=== PATIENT | female | born 1990 | race Caucasian/White ===

== ENCOUNTER 2021-05-15 21:10 | Inpatient (IN) | payer MEDICAID, OTHER ==
[~2021-05-15] VITALS: Ht 160 cm; Wt 75.2 kg
[~2021-05-15 21:10] MED LIST: CHLO25CA9 PO; DISU250T2 PO; FOLI1TAB32 PO; MAGN400T26 PO; PHOS250T3 PO; THIA100T10 PO
[2021-05-15] MEDS ORDERED: SODIUM CHLORIDE FLUSH 10ML SYR IVF ONE (22:00)
[2021-05-15] MEDS ORDERED: ONDANSETRON 2MG/ML, 2ML IVPush ONE ×2 (22:00→23:00)
[2021-05-15] MEDS ORDERED: SODIUM CHLORIDE 0.9% 1,000ML IVBOLUS ONE ×2 (22:00→23:00)
[2021-05-15 22:16] LABS: CHLORIDE 85 mmol/L (98-107); CREATININE 1.04 mg/dL (0.55-1.02)
[2021-05-15 22:25] LABS: ANION GAP 26 mmol/L (5-15)
[2021-05-15 22:26] LABS: ALBUMIN 2.3 g/dL (3.4-5.0); ALKALINE PHOSPHATASE 58 U/L (45-117); BILIRUBIN,TOTAL 2.7 mg/dL (0.2-1.0); TOTAL PROTEIN 7.1 g/dL (6.4-8.2)
[2021-05-15 22:26] LABS: MICROSCOPIC INDICATED
[2021-05-15 23:14] LABS: ALANINE AMINOTRANSFERASE 15 U/L (12-78); CALCIUM 7.6 mg/dL (8.5-10.1)
[2021-05-15] MEDS ORDERED: POTASSIUM CHLORIDE 20 MEQ in SODIUM CHLORIDE 0.9% 250 ML IV ONE (23:30)
[2021-05-15 23:38] LABS: MEAN CORPUSCULAR HEMOGLOBIN 31.6 pg (27.0-34.8); MEAN CORPUSCULAR HGB CONC 33.3 g/dL (32.4-35.8); MEAN PLATELET VOLUME 7.5 fL (7.4-10.4); PLATELET COUNT 260 x10^3/uL (130-400); RED BLOOD COUNT 4.26 x10^6/uL (3.82-5.3); RED CELL DISTRIBUTION WIDTH 15.5 % (9.6-15.2)
[2021-05-15 23:47] LABS: BAND#(MANUAL) 1.85 x10^3/uL; BANDS%(MANUAL) 15 % (0-7); BASOS#(MANUAL) 0.12 x10^3/uL (0-0.1); BASOS% (MANUAL) 1 % (0-1); EOS#(MANUAL) 0.12 x10^3/uL (0.0-0.4); EOS% (MANUAL) 1 % (1-7); LYMPH#(MANUAL) 1.48 x10^3/uL (1-3.4); LYMPHS% (MANUAL) 12 % (22-44); MONOS#(MANUAL) 0.86 x10^3/uL (0.3-2.7); MONOS% (MANUAL) 7 % (2-9); SEG#(MANUAL) 7.87 x10^3/uL (1.8-6.8); SEGS% (MANUAL) 64 % (42-75)
[2021-05-15 23:48] LABS: <PLATELET ESTIMATE> ADEQUATE; <PLT MORPHOLOGY> NORMAL PLT MORPH; <RBC MORPHOLOGY> NORMAL
[2021-05-15] MEDS ORDERED: ONDANSETRON 2MG/ML, 2ML ONE (23:53)
[2021-05-15] MEDS ORDERED: MORPHINE SULFATE 4 MG/ML, 1ML ONE (23:54)
[2021-05-16] MEDS ORDERED: LACTATED RINGERS 1,000 ML IVBOLUS ONE
[2021-05-16] MEDS: MORPHINE SULFATE 4 MG/ML, 1ML IVPush PRN ×2 (00:01→01:06)
--- NOTE | 2021-05-16 00:06 | NUR ---
pt c/o of lower abdominal pain since yesterday morning that continued to get worse. pt last drink was saturday night. pt lipase levels elevated. pt resting in bed with fiance at bedside. pt attached to card/sp02/bp monitors. hr elevated. bed in low position, rails engaged. call light on lap. pt tolerated meds well. pt given blankets. wctm.
--- NOTE | 2021-05-16 00:21 | NUR ---
PT OFF UNIT IN IMAGING.
[2021-05-16] MEDS ORDERED: OMNIPAQUE 350 MG/ML, 100ML BOTTLE ONE (00:41)
[2021-05-16] MEDS ORDERED: MORPHINE SULFATE 4 MG/ML, 1ML ONE (00:54)
[2021-05-16] MEDS ORDERED: ONDANSETRON 2MG/ML, 2ML ONE (00:54)
--- NOTE | 2021-05-16 01:08 | NUR ---
Patient is resting in bed. Bed in lowest, rails engaged, call light on lap. Vss with elevated hr. WCTM. medicated per emar. nadn breathing even and unlabored.
[2021-05-16] MEDS ORDERED: PIPERACILLIN/TAZO 3.375 GM in DEXTROSE 5% 50 ML IVPB ONE (02:00)
[2021-05-16] MEDS ORDERED: SODIUM CHLORIDE 0.9% 1,000 ML IV ONE (02:00)
[2021-05-16] MEDS ORDERED: MORPHINE SULFATE 4 MG/ML, 1ML IVPush PRN (02:00)
[2021-05-16] MEDS ORDERED: ONDANSETRON 2MG/ML, 2ML IVPush PRN (02:00)
[2021-05-16] MEDS ORDERED: HYDROmorphone 2 MG/ML, 1ML IVPush ONE (02:30)
[2021-05-16] MEDS ORDERED: HYDROmorphone 1 MG/ML, 1ML INJ ONE (02:30)
--- NOTE | 2021-05-16 02:44 | NUR ---
6 rights, and 3 checks done on dilauded med. bottle would not scan.
--- NOTE | 2021-05-16 02:46 | NUR ---
pt ambulated to bathroom with steady gait.
[2021-05-16] MEDS ORDERED: GUAIFENESIN/DM 200-20MG, 10ML UDC PO PRN (03:00)
[2021-05-16] MEDS ORDERED: CHLORDIAZEPOXIDE 25 MG CAPSULE PO PRN ×2 (03:00)
[2021-05-16] MEDS ORDERED: CHLORDIAZEPOXIDE 10 MG CAPSULE PO PRN (03:00)
[2021-05-16] MEDS ORDERED: SODIUM CHLORIDE 0.9% 1,000 ML IV SCH (03:00)
[2021-05-16] MEDS ORDERED: BACLOFEN 10 MG TABLET PO PRN (03:00)
[2021-05-16] MEDS ORDERED: ENALAPRILAT 1.25 MG/ML, 2ML IVPush PRN (03:00)
[2021-05-16] MEDS ORDERED: FOLIC ACID 5 MG/ML IM ONE (03:00)
--- NOTE | 2021-05-16 03:06 | NUR ---
SPOKE TO DR FAJARDO. WAS TOLD TO USE A NS BOLUS INSTEAD OF LACTATED RINGERS DUE TO INCOMPATILBILTY WITH ZOSYN.
--- NOTE | 2021-05-16 03:13 | NUR ---
Patient is resting comfortably in bed. Bed in lowest, rails engaged, call light on lap. Vital Signs within normal limits. WCTM. attachd to all monitors. pamela
--- NOTE | 2021-05-16 03:15 | NUR ---
PT STATES SHE DOES NOT TAKE MEDICATIONS
--- NOTE | 2021-05-16 03:19 | NUR ---
GAVE REPORT TO DORITA DAVIS
[2021-05-16 03:38] VITALS: BP 122/82
[2021-05-16] MEDS: OXYcodone IR 5MG TABLET PO PRN ×3 (04:04→19:47)
[2021-05-16 05:24] LABS: ANION GAP 23 mmol/L (5-15); CHLORIDE 95 mmol/L (98-107); CREATININE 0.61 mg/dL (0.55-1.02)
[2021-05-16 05:28] LABS: ALBUMIN 1.9 g/dL (3.4-5.0)
[2021-05-16 05:41] LABS: MEAN CORPUSCULAR HEMOGLOBIN 32.2 pg (27.0-34.8); MEAN CORPUSCULAR HGB CONC 33.8 g/dL (32.4-35.8); PLATELET COUNT 243 x10^3/uL (130-400); RED BLOOD COUNT 3.45 x10^6/uL (3.82-5.3); RED CELL DISTRIBUTION WIDTH 15.3 % (9.6-15.2)
[2021-05-16 05:56] LABS: BAND#(MANUAL) 1.43 x10^3/uL; BANDS%(MANUAL) 14 % (0-7); BASOS% (MANUAL) 1 % (0-1); EOS% (MANUAL) 2 % (1-7); LYMPH#(MANUAL) 1.33 x10^3/uL (1-3.4); LYMPHS% (MANUAL) 13 % (22-44); MONOS#(MANUAL) 0.71 x10^3/uL (0.3-2.7); MONOS% (MANUAL) 7 % (2-9); SEG#(MANUAL) 6.43 x10^3/uL (1.8-6.8); SEGS% (MANUAL) 63 % (42-75)
[2021-05-16 05:58] LABS: <RBC MORPHOLOGY> NORMAL
[2021-05-16 05:59] LABS: <PLATELET ESTIMATE> ADEQUATE; <PLT MORPHOLOGY> NORMAL PLT MORPH
[2021-05-16] MEDS ORDERED: SODIUM BICARBONATE 1 MEQ/ML, 50ML VIAL IVPush ONE (06:00)
[2021-05-16 06:15] LABS: CALCIUM 5.7 mg/dL (8.5-10.1)
[2021-05-16 07:14] VITALS: BP 130/89
[2021-05-16 07:37] LABS: O2 FLOW ROOM AIR L/min
[2021-05-16] MEDS: morphine SULFATE 10 MG/ML, 1ML IVPush PRN ×5 (07:44→23:00)
[2021-05-16] MEDS: MULTIVITAMINS/MINERALS TABLET PO SCH (08:03)
[2021-05-16] MEDS: SODIUM BICARBONATE 8.4% 100 MEQ in DEXTROSE 5% 1,000 ML IV SCH ×2 (08:21→15:33)
[2021-05-16] MEDS: FAMOTIDINE 20 MG/2 ML IVPush SCH ×2 (08:21→20:23)
[2021-05-16] MEDS: ENOXAPARIN 40 MG/0.4 ML SQ SCH (08:21)
[2021-05-16 09:03] LABS: ANION GAP 13 mmol/L (5-15); CHLORIDE 109 mmol/L (98-107); CREATININE 0.53 mg/dL (0.55-1.02)
[2021-05-16 09:09] LABS: CALCIUM 5.7 mg/dL (8.5-10.1)
[2021-05-16] MEDS: CHLORDIAZEPOXIDE 25 MG CAPSULE PO PRN (09:13)
[2021-05-16 09:24] VITALS: BP 120/88
[2021-05-16] MEDS: ACETAMINOPHEN 325 MG TABLET PO PRN ×3 (10:57→22:59)
[2021-05-16 13:08] VITALS: BP 108/78
[2021-05-16 18:30] LABS: ANION GAP 15 mmol/L (5-15); CHLORIDE 101 mmol/L (98-107)
[2021-05-16 18:43] LABS: CALCIUM < 5.0 mg/dL (8.5-10.1)
[2021-05-16] MEDS ORDERED: CALCIUM GLUCONATE 4.6 MEQ in SODIUM CHLORIDE 0.9% 50 ML IV ONE (19:00)
[2021-05-16] MEDS ORDERED: CALCIUM GLUCONATE 4.6 MEQ/10 ML IVPush ONE (19:00)
[2021-05-16] MEDS ORDERED: POTASSIUM CHLORIDE 40 MEQ in SODIUM CHLORIDE 0.9% 500 ML IV ONE (19:00)
[2021-05-16] MEDS: ONDANSETRON 2MG/ML, 2ML IVPush PRN (19:47)
[2021-05-16 20:45] VITALS: BP 96/65
[2021-05-16] MEDS: ZOLPIDEM 5MG TABLET PO PRN (21:00)
[2021-05-17] MEDS: SODIUM BICARBONATE 8.4% 100 MEQ in DEXTROSE 5% 1,000 ML IV SCH (00:22)
[2021-05-17 00:56] VITALS: BP 95/60
[2021-05-17] MEDS: morphine SULFATE 10 MG/ML, 1ML IVPush PRN ×4 (03:03→23:36)
[2021-05-17] MEDS: ACETAMINOPHEN 325 MG TABLET PO PRN ×2 (03:03→20:14)
[2021-05-17 06:23] LABS: ALANINE AMINOTRANSFERASE 14 U/L (12-78); ALBUMIN 2.2 g/dL (3.4-5.0); ANION GAP 15 mmol/L (5-15); CHLORIDE 99 mmol/L (98-107); CREATININE 1.91 mg/dL (0.55-1.02)
[2021-05-17 06:25] LABS: ALKALINE PHOSPHATASE 36 U/L (45-117); BILIRUBIN,TOTAL 1.1 mg/dL (0.2-1.0); TOTAL PROTEIN 5.8 g/dL (6.4-8.2)
[2021-05-17] MEDS: OXYcodone IR 5MG TABLET PO PRN ×2 (06:27→14:08)
[2021-05-17] MEDS: ONDANSETRON 2MG/ML, 2ML IVPush PRN ×2 (06:27→20:13)
[2021-05-17 06:35] LABS: CALCIUM < 5.0 mg/dL (8.5-10.1)
[2021-05-17 06:35] LABS: MEAN CORPUSCULAR HGB CONC 33.6 g/dL (32.4-35.8); MEAN PLATELET VOLUME 6.9 fL (7.4-10.4); RED BLOOD COUNT 4.09 x10^6/uL (3.82-5.3); RED CELL DISTRIBUTION WIDTH 15.4 % (9.6-15.2)
[2021-05-17 06:37] VITALS: BP 95/61
[2021-05-17 06:37] LABS: PLATELET COUNT 226 x10^3/uL (130-400)
[2021-05-17 06:41] LABS: BAND#(MANUAL) 5.33 x10^3/uL; BANDS%(MANUAL) 41 % (0-7); BASOS#(MANUAL) 0.13 x10^3/uL (0-0.1); BASOS% (MANUAL) 1 % (0-1); EOS#(MANUAL) 0.13 x10^3/uL (0.0-0.4); EOS% (MANUAL) 1 % (1-7); LYMPH#(MANUAL) 0.39 x10^3/uL (1-3.4); LYMPHS% (MANUAL) 3 % (22-44); METAMYELOCYTES# (MANUAL) 0.52 x10^3/uL (0-0); METAMYELOCYTES% (MANUAL) 4 % (0-1); MONOS#(MANUAL) 0.39 x10^3/uL (0.3-2.7); MONOS% (MANUAL) 3 % (2-9); SEG#(MANUAL) 6.11 x10^3/uL (1.8-6.8); SEGS% (MANUAL) 47 % (42-75)
[2021-05-17 06:42] LABS: ANISOCYTOSIS 1+; PMNS WITH VACUOLES 1+
[2021-05-17 06:43] LABS: <PLATELET ESTIMATE> ADEQUATE; <PLT MORPHOLOGY> NORMAL PLT MORPH
[2021-05-17] MEDS: CHLORDIAZEPOXIDE 25 MG CAPSULE PO PRN (06:47)
[2021-05-17] MEDS ORDERED: POTASSIUM PHOSPHATE 44 MEQ in SODIUM CHLORIDE 0.9% 500 ML IV ONE (07:00)
[2021-05-17] MEDS ORDERED: MAGNESIUM SULFATE PMX 2GM/50ML 50 ML IV ONE (07:00)
[2021-05-17] MEDS ORDERED: CALCIUM GLUCONATE 9.2 MEQ in SODIUM CHLORIDE 0.9% 100 ML IV ONE ×3 (07:00→18:30)
[2021-05-17] MEDS ORDERED: MAGNESIUM SULFATE 1 GM in SODIUM CHLORIDE 0.9% 50 ML IV ONE (07:00)
[2021-05-17] MEDS ORDERED: CALCIUM GLUCONATE 0.46MEQ/1ML IVPush ONE (07:00)
[2021-05-17] MEDS: MULTIVITAMINS/MINERALS TABLET PO SCH (08:05)
[2021-05-17] MEDS: FAMOTIDINE 20 MG/2 ML IVPush SCH (08:21)
[2021-05-17] MEDS: ENOXAPARIN 40 MG/0.4 ML SQ SCH (09:01)
[2021-05-17 09:06] LABS: ALANINE AMINOTRANSFERASE 13 U/L (12-78); ALBUMIN 2.2 g/dL (3.4-5.0); ANION GAP 15 mmol/L (5-15); CHLORIDE 95 mmol/L (98-107); CREATININE 2.37 mg/dL (0.55-1.02)
[2021-05-17 09:08] LABS: ALKALINE PHOSPHATASE 33 U/L (45-117); BILIRUBIN,TOTAL 1.2 mg/dL (0.2-1.0)
[2021-05-17 09:14] LABS: CALCIUM < 5.0 mg/dL (8.5-10.1)
[2021-05-17 09:28] VITALS: BP 85/54
[2021-05-17] MEDS ORDERED: LACTATED RINGERS 1,000 ML IVBOLUS ONE (10:00)
[2021-05-17] MEDS ORDERED: ALBUMIN HUMAN 25% 100 ML IV ONE (11:00)
[2021-05-17 11:20] VITALS: BP 100/66
[2021-05-17 12:11] VITALS: BP 96/65
[2021-05-17] MEDS: CEFTRIAXONE 2 GM in DEXTROSE 5% 50 ML IVPB SCH (12:12)
[2021-05-17] MEDS ORDERED: CALCIUM GLUCONATE 4.6 MEQ/10 ML IVPush ONE ×2 (12:30→18:00)
[2021-05-17] MEDS: THIAMINE 100 MG in DEXTROSE 5% 50 ML IVPB SCH (14:08)
[2021-05-17] MEDS: POTASSIUM CHLORIDE 10 MEQ in LACTATED RINGERS 1,000 ML IV SCH (15:47)
[2021-05-17 17:03] LABS: MICROSCOPIC INDICATED
[2021-05-17 20:09] VITALS: BP 117/74
[2021-05-17] MEDS: ZOLPIDEM 5MG TABLET PO PRN (20:14)
[2021-05-17] MEDS ORDERED: FAMOTIDINE 20 MG TABLET PO SCH (21:00)
[2021-05-18 00:27] VITALS: BP 100/67
[2021-05-18] MEDS: POTASSIUM CHLORIDE 10 MEQ in LACTATED RINGERS 1,000 ML IV SCH (00:27)
[2021-05-18 05:50] LABS: CHLORIDE 91 mmol/L (98-107)
[2021-05-18] MEDS: morphine SULFATE 10 MG/ML, 1ML IVPush PRN ×3 (05:53→21:19)
[2021-05-18] MEDS: ACETAMINOPHEN 325 MG TABLET PO PRN ×4 (05:53→22:08)
[2021-05-18 05:58] LABS: ALKALINE PHOSPHATASE 52 U/L (45-117); ANION GAP 14 mmol/L (5-15); BILIRUBIN,TOTAL 1.3 mg/dL (0.2-1.0); CREATININE 1.06 mg/dL (0.55-1.02); TOTAL PROTEIN 5.6 g/dL (6.4-8.2)
[2021-05-18 06:03] LABS: ALANINE AMINOTRANSFERASE 13 U/L (12-78)
[2021-05-18 06:04] LABS: CALCIUM < 5.0 mg/dL (8.5-10.1)
[2021-05-18 07:30] VITALS: BP 104/62
[2021-05-18] MEDS: OXYcodone IR 5MG TABLET PO PRN ×3 (08:49→23:40)
[2021-05-18] MEDS: MULTIVITAMINS/MINERALS TABLET PO SCH (08:49)
[2021-05-18] MEDS: THIAMINE 100 MG in DEXTROSE 5% 50 ML IVPB SCH (08:49)
[2021-05-18] MEDS: ENOXAPARIN 30 MG/0.3 ML SQ SCH (08:52)
[2021-05-18] MEDS ORDERED: LORazepam 1MG TABLET PO PRN ×4 (09:30)
[2021-05-18] MEDS ORDERED: LORazepam 2 MG/ML, 1ML IV PRN ×6 (09:30)
[2021-05-18] MEDS ORDERED: LORazepam 0.5MG TABLET PO PRN (09:30)
[2021-05-18] MEDS: CEFTRIAXONE 2 GM in DEXTROSE 5% 50 ML IVPB SCH (10:10)
[2021-05-18] MEDS: NS + 20MEQ KCL 1,000 ML IV SCH ×2 (10:10→21:17)
[2021-05-18 13:00] VITALS: BP 111/75
[2021-05-18] MEDS: CHLORDIAZEPOXIDE 5 MG CAPSULE PO SCH ×2 (13:39→21:30)
[2021-05-18 15:49] LABS: ANION GAP 11 mmol/L (5-15); CHLORIDE 96 mmol/L (98-107); CREATININE 0.73 mg/dL (0.55-1.02)
[2021-05-18 15:58] LABS: CALCIUM < 5.0 mg/dL (8.5-10.1)
[2021-05-18] MEDS ORDERED: CALCIUM GLUCONATE 4.6 MEQ/10 ML IVPush ONE (16:30)
[2021-05-18] MEDS ORDERED: CALCIUM GLUCONATE 9.2 MEQ in SODIUM CHLORIDE 0.9% 100 ML IV ONE (16:30)
[2021-05-18 19:39] VITALS: BP 108/69
[2021-05-18] MEDS: ZOLPIDEM 5MG TABLET PO PRN (21:17)
[2021-05-18] MEDS: FAMOTIDINE 20 MG TABLET PO SCH (21:17)
[2021-05-19] VITALS (13 sets, daily range): BP systolic 108–139; BP diastolic 66–98
[2021-05-19] MEDS: CHLORDIAZEPOXIDE 5 MG CAPSULE PO SCH ×2 (02:30→09:00)
[2021-05-19] MEDS: ACETAMINOPHEN 325 MG TABLET PO PRN ×3 (02:46→22:05)
[2021-05-19] MEDS: morphine SULFATE 10 MG/ML, 1ML IVPush PRN ×2 (03:06→19:34)
[2021-05-19 05:11] LABS: MEAN CORPUSCULAR HEMOGLOBIN 32.7 pg (27.0-34.8); MEAN CORPUSCULAR HGB CONC 34.4 g/dL (32.4-35.8); MEAN PLATELET VOLUME 9.1 fL (7.4-10.4); PLATELET COUNT 143 x10^3/uL (130-400); RED BLOOD COUNT 2.77 x10^6/uL (3.82-5.3); RED CELL DISTRIBUTION WIDTH 15.3 % (9.6-15.2)
[2021-05-19 05:25] LABS: CHLORIDE 94 mmol/L (98-107)
[2021-05-19 05:57] LABS: ALKALINE PHOSPHATASE 62 U/L (45-117); ANION GAP 10 mmol/L (5-15); BILIRUBIN,TOTAL 0.8 mg/dL (0.2-1.0); TOTAL PROTEIN 6.1 g/dL (6.4-8.2)
[2021-05-19 06:14] LABS: ALANINE AMINOTRANSFERASE 14 U/L (12-78); CALCIUM < 5.0 mg/dL (8.5-10.1)
[2021-05-19 06:20] LABS: ANISOCYTOSIS 1+; BAND#(MANUAL) 0.44 x10^3/uL; BANDS%(MANUAL) 4 % (0-7); EOS#(MANUAL) 0.11 x10^3/uL (0.0-0.4); EOS% (MANUAL) 1 % (1-7); LYMPH#(MANUAL) 0.44 x10^3/uL (1-3.4); LYMPHS% (MANUAL) 4 % (22-44); METAMYELOCYTES# (MANUAL) 0.11 x10^3/uL (0-0); METAMYELOCYTES% (MANUAL) 1 % (0-1); MONOS#(MANUAL) 1.11 x10^3/uL (0.3-2.7); MONOS% (MANUAL) 10 % (2-9); MYELOCYTES# (MANUAL) 0.11 x10^3/uL (0-0); MYELOCYTES% (MANUAL) 1 % (0-0); SEG#(MANUAL) 8.77 x10^3/uL (1.8-6.8); SEGS% (MANUAL) 79 % (42-75)
[2021-05-19 06:21] LABS: <PLATELET ESTIMATE> ADEQUATE; <PLT MORPHOLOGY> NORMAL PLT MORPH; PMNS WITH VACUOLES 1+
[2021-05-19] MEDS: OXYcodone IR 5MG TABLET PO PRN ×4 (06:32→22:32)
[2021-05-19] MEDS ORDERED: CALCIUM GLUCONATE 4.6 MEQ/10 ML IVPush ONE (10:00)
[2021-05-19] MEDS ORDERED: CALCIUM GLUCONATE 4.6 MEQ/10 ML IVPush SCH ×2 (10:00→16:00)
[2021-05-19] MEDS ORDERED: CALCIUM GLUCONATE 9.2 MEQ in SODIUM CHLORIDE 0.9% 100 ML IV ONE (10:00)
[2021-05-19 10:16] LABS: FIO2 ROOM AIR %
[2021-05-19 10:27] LABS: ANION GAP 12 mmol/L (5-15); CHLORIDE 93 mmol/L (98-107)
[2021-05-19] MEDS ORDERED: POTASSIUM PHOSPHATE 44 MEQ in SODIUM CHLORIDE 0.9% 500 ML IV ONE (10:30)
[2021-05-19] MEDS ORDERED: SODIUM PHOSPHATE 30 MMOL in SODIUM CHLORIDE 0.9% 500 ML IV ONE (11:00)
[2021-05-19] MEDS: MULTIVITAMINS/MINERALS TABLET PO SCH (11:01)
[2021-05-19] MEDS: FAMOTIDINE 20 MG TABLET PO SCH ×2 (11:02→20:45)
[2021-05-19] MEDS: ENOXAPARIN 30 MG/0.3 ML SQ SCH (11:02)
[2021-05-19 11:08] LABS: CALCIUM < 5.0 mg/dL (8.5-10.1)
[2021-05-19] MEDS: ALBUMIN HUMAN 25% 100 ML IV SCH ×2 (12:08→20:18)
[2021-05-19] MEDS ORDERED: OMNIPAQUE 350 MG/ML, 100ML BOTTLE ONE (13:35)
[2021-05-19] MEDS ORDERED: POTASSIUM CHLORIDE 20 MEQ TAB.ER.PRT PO ONE (14:00)
[2021-05-19] MEDS: THIAMINE 100 MG in DEXTROSE 5% 50 ML IVPB SCH (14:22)
[2021-05-19] MEDS: CEFTRIAXONE 2 GM in DEXTROSE 5% 50 ML IVPB SCH (14:22)
[2021-05-19] MEDS ORDERED: CEFEPIME 2 GM in DEXTROSE 5% 100 ML IV SCH (16:00)
[2021-05-19] MEDS ORDERED: CALCIUM GLUCONATE 9.2 MEQ in SODIUM CHLORIDE 0.9% 100 ML IV SCH (16:00)
[2021-05-19] MEDS ORDERED: CALCIUM CHLORIDE 27.2 MEQ in SODIUM CHLORIDE 0.9% 100 ML IV PRN (16:30)
[2021-05-19] MEDS ORDERED: CALCIUM CHLORIDE 27.2 MEQ in SODIUM CHLORIDE 0.9% 100 ML IV ONE (16:30)
[2021-05-19] MEDS ORDERED: METRONIDAZOLE PMX 500MG/100ML 100 ML IV SCH (17:00)
[2021-05-19] MEDS: MEROPENEM 1 GM in SODIUM CHLORIDE 0.9% 100 ML IV SCH (17:19)
[2021-05-19] MEDS: KSCALE TO 4.5 PO SCH (20:00)
[2021-05-19] MEDS: POTASSIUM CHLORIDE 40 MEQ in LACTATED RINGERS 1,000 ML IV SCH (20:55)
[2021-05-19] MEDS: LORazepam 2 MG/ML, 1ML IVPush PRN (22:37)
[2021-05-20] MEDS ORDERED: POTASSIUM CHLORIDE PMX 100 ML IV ONE (01:00)
[2021-05-20] MEDS: MEROPENEM 1 GM in SODIUM CHLORIDE 0.9% 100 ML IV SCH ×3 (01:05→17:41)
[2021-05-20] MEDS ORDERED: POTASSIUM CHLORIDE 20 MEQ in SODIUM CHLORIDE 0.9% 250 ML IV ONE (01:30)
[2021-05-20] MEDS: morphine SULFATE 10 MG/ML, 1ML IVPush PRN ×6 (01:51→21:31)
[2021-05-20] MEDS: LORazepam 2 MG/ML, 1ML IVPush PRN ×7 (01:51→21:31)
[2021-05-20] MEDS: ALBUMIN HUMAN 25% 100 ML IV SCH ×3 (02:17→17:43)
[2021-05-20] MEDS: KSCALE TO 4.5 PO SCH ×2 (04:00)
[2021-05-20 04:09] LABS: MEAN CORPUSCULAR HEMOGLOBIN 32.3 pg (27.0-34.8); MEAN CORPUSCULAR HGB CONC 33.6 g/dL (32.4-35.8); MEAN PLATELET VOLUME 8.2 fL (7.4-10.4); PLATELET COUNT 123 x10^3/uL (130-400); RED BLOOD COUNT 2.58 x10^6/uL (3.82-5.3); RED CELL DISTRIBUTION WIDTH 15.5 % (9.6-15.2)
[2021-05-20 04:20] LABS: ALANINE AMINOTRANSFERASE 11 U/L (12-78); ALBUMIN 2.7 g/dL (3.4-5.0); ANION GAP 8 mmol/L (5-15); CALCIUM 7.8 mg/dL (8.5-10.1); CHLORIDE 102 mmol/L (98-107); CREATININE 0.31 mg/dL (0.55-1.02)
[2021-05-20 04:24] LABS: ALKALINE PHOSPHATASE 64 U/L (45-117); CREATINE KINASE, TOTAL 642 U/L (26-192); TOTAL PROTEIN 6.6 g/dL (6.4-8.2)
[2021-05-20] MEDS ORDERED: DEXTROSE 50%, 50ML SYRINGE ONE (04:40)
[2021-05-20] MEDS: POTASSIUM CHLORIDE 40 MEQ in LACTATED RINGERS 1,000 ML IV SCH (04:43)
[2021-05-20] MEDS ORDERED: DEXTROSE 50%, 50ML SYRINGE IVPush PRN (05:00)
[2021-05-20 05:54] LABS: BAND#(MANUAL) 2.55 x10^3/uL; BANDS%(MANUAL) 23 % (0-7); EOS#(MANUAL) 0.33 x10^3/uL (0.0-0.4); EOS% (MANUAL) 3 % (1-7); LYMPH#(MANUAL) 0.67 x10^3/uL (1-3.4); LYMPHS% (MANUAL) 6 % (22-44); METAMYELOCYTES# (MANUAL) 0.33 x10^3/uL (0-0); METAMYELOCYTES% (MANUAL) 3 % (0-1); MONOS#(MANUAL) 1.44 x10^3/uL (0.3-2.7); MONOS% (MANUAL) 13 % (2-9); MYELOCYTES# (MANUAL) 0.22 x10^3/uL (0-0); MYELOCYTES% (MANUAL) 2 % (0-0); SEG#(MANUAL) 5.55 x10^3/uL (1.8-6.8); SEGS% (MANUAL) 50 % (42-75)
[2021-05-20 05:55] LABS: ANISOCYTOSIS 1+; TOXIC GRAN 1+
[2021-05-20 05:56] LABS: <PLATELET ESTIMATE> DECREASED; <PLT MORPHOLOGY> NORMAL PLT MORPH
[2021-05-20] MEDS ORDERED: POTASSIUM CHLORIDE 40 MEQ in D5%-LACTATED RINGERS 1,000 ML IV SCH (06:30)
[2021-05-20] MEDS ORDERED: SODIUM PHOSPHATE 20 MMOL in SODIUM CHLORIDE 0.9% 500 ML IV ONE (07:00)
[2021-05-20] MEDS: POTASSIUM CHLORIDE 40 MEQ in D5%-LACTATED RINGERS 1,000 ML IV SCH (08:30)
[2021-05-20] MEDS: MULTIVITAMINS/MINERALS TABLET PO SCH (08:53)
[2021-05-20] MEDS: CHLORDIAZEPOXIDE 25 MG CAPSULE PO SCH ×4 (08:53→20:38)
[2021-05-20] MEDS: CALCIUM CARBONATE 500 MG TAB.CHEW PO SCH ×4 (08:53→20:05)
[2021-05-20] MEDS: OXYcodone IR 5MG TABLET PO PRN (08:54)
[2021-05-20] MEDS: FAMOTIDINE 20 MG TABLET PO SCH ×2 (08:54→20:05)
[2021-05-20] MEDS: THIAMINE 200 MG in DEXTROSE 5% 50 ML IVPB SCH (10:13)
[2021-05-20] MEDS: ENOXAPARIN 40 MG/0.4 ML SQ SCH (10:14)
[2021-05-20] MEDS: DOCUSATE 100 MG CAPSULE PO PRN (16:25)
[2021-05-20] MEDS: ACETAMINOPHEN 325 MG TABLET PO PRN (19:51)
[2021-05-21] MEDS: morphine SULFATE 10 MG/ML, 1ML IVPush PRN ×2 (00:21→04:05)
[2021-05-21] MEDS: LORazepam 2 MG/ML, 1ML IVPush PRN ×2 (00:22→04:05)
[2021-05-21] MEDS: MEROPENEM 1 GM in SODIUM CHLORIDE 0.9% 100 ML IV SCH ×3 (00:55→19:45)
[2021-05-21] MEDS: ALBUMIN HUMAN 25% 100 ML IV SCH ×3 (02:03→22:07)
[2021-05-21] MEDS: OXYcodone IR 5MG TABLET PO PRN ×4 (02:19→20:28)
[2021-05-21] MEDS: POTASSIUM CHLORIDE 40 MEQ in D5%-LACTATED RINGERS 1,000 ML IV SCH (03:10)
[2021-05-21 04:13] LABS: MEAN CORPUSCULAR HEMOGLOBIN 32.5 pg (27.0-34.8); MEAN CORPUSCULAR HGB CONC 34.3 g/dL (32.4-35.8); MEAN PLATELET VOLUME 8.4 fL (7.4-10.4); PLATELET COUNT 135 x10^3/uL (130-400); RED BLOOD COUNT 2.32 x10^6/uL (3.82-5.3); RED CELL DISTRIBUTION WIDTH 15.7 % (9.6-15.2)
[2021-05-21 04:24] LABS: ALANINE AMINOTRANSFERASE 13 U/L (12-78); ALBUMIN 3.4 g/dL (3.4-5.0); ANION GAP 6 mmol/L (5-15); CHLORIDE 99 mmol/L (98-107); CREATININE 0.28 mg/dL (0.55-1.02)
[2021-05-21 04:27] LABS: ALKALINE PHOSPHATASE 141 U/L (45-117); BILIRUBIN,TOTAL 1.2 mg/dL (0.2-1.0); CREATINE KINASE, TOTAL 141 U/L (26-192); TOTAL PROTEIN 6.6 g/dL (6.4-8.2)
[2021-05-21 05:40] LABS: ANISOCYTOSIS 1+; BANDS%(MANUAL) 18 % (0-7); EOS#(MANUAL) 0.18 x10^3/uL (0.0-0.4); EOS% (MANUAL) 1 % (1-7); LYMPH#(MANUAL) 0.53 x10^3/uL (1-3.4); LYMPHS% (MANUAL) 3 % (22-44); METAMYELOCYTES# (MANUAL) 0.36 x10^3/uL (0-0); METAMYELOCYTES% (MANUAL) 2 % (0-1); MONOS#(MANUAL) 0.89 x10^3/uL (0.3-2.7); MONOS% (MANUAL) 5 % (2-9); MYELOCYTES# (MANUAL) 0.53 x10^3/uL (0-0); MYELOCYTES% (MANUAL) 3 % (0-0); SEGS% (MANUAL) 68 % (42-75)
[2021-05-21 05:41] LABS: <PLATELET ESTIMATE> ADEQUATE; <PLT MORPHOLOGY> NORMAL PLT MORPH; TOXIC GRAN 1+
[2021-05-21] MEDS ORDERED: SODIUM PHOSPHATE 20 MMOL in SODIUM CHLORIDE 0.9% 500 ML IV ONE (06:30)
[2021-05-21] MEDS ORDERED: CALCIUM CHLORIDE 13.6 MEQ in SODIUM CHLORIDE 0.9% 100 ML IV ONE (06:30)
[2021-05-21] MEDS: CHLORDIAZEPOXIDE 25 MG CAPSULE PO SCH ×4 (06:30→20:27)
[2021-05-21] MEDS ORDERED: MAGNESIUM SULFATE PMX 2GM/50ML 50 ML IV ONE (06:30)
[2021-05-21] MEDS: CALCIUM CARBONATE 500 MG TAB.CHEW PO SCH ×4 (06:30→20:28)
[2021-05-21] MEDS ORDERED: VANCOMYCIN PER PHARMACY MC PRN (06:30)
[2021-05-21] MEDS ORDERED: VANCOMYCIN 2,000 MG in SODIUM CHLORIDE 0.9% 500 ML IV ONE (07:30)
[2021-05-21] MEDS: FAMOTIDINE 20 MG TABLET PO SCH ×2 (08:39→20:28)
[2021-05-21] MEDS: ENOXAPARIN 40 MG/0.4 ML SQ SCH (08:39)
[2021-05-21] MEDS: MULTIVITAMINS/MINERALS TABLET PO SCH (08:39)
[2021-05-21] MEDS: THIAMINE 200 MG in DEXTROSE 5% 50 ML IVPB SCH (11:47)
[2021-05-21] MEDS: VANCOMYCIN 1,500 MG in SODIUM CHLORIDE 0.9% 250 ML IV SCH (20:15)
[2021-05-21] MEDS ORDERED: PHARMACOKINETIC MONITORING MC PRN (20:30)
[2021-05-22] MEDS: OXYcodone IR 5MG TABLET PO PRN ×5 (00:30→19:52)
[2021-05-22] MEDS: POTASSIUM CHLORIDE 40 MEQ in D5%-LACTATED RINGERS 1,000 ML IV SCH ×2 (00:58→22:45)
[2021-05-22] MEDS: MEROPENEM 1 GM in SODIUM CHLORIDE 0.9% 100 ML IV SCH ×3 (04:02→20:21)
[2021-05-22 04:24] LABS: MEAN CORPUSCULAR HEMOGLOBIN 31.9 pg (27.0-34.8); MEAN CORPUSCULAR HGB CONC 33.2 g/dL (32.4-35.8); MEAN PLATELET VOLUME 8.8 fL (7.4-10.4); PLATELET COUNT 175 x10^3/uL (130-400); RED BLOOD COUNT 2.21 x10^6/uL (3.82-5.3); RED CELL DISTRIBUTION WIDTH 15.3 % (9.6-15.2)
[2021-05-22 04:26] LABS: ALANINE AMINOTRANSFERASE 13 U/L (12-78); ALBUMIN 3.4 g/dL (3.4-5.0); ALKALINE PHOSPHATASE 113 U/L (45-117); ANION GAP 5 mmol/L (5-15); BILIRUBIN,TOTAL 0.9 mg/dL (0.2-1.0); CALCIUM 8.5 mg/dL (8.5-10.1); CHLORIDE 96 mmol/L (98-107); TOTAL PROTEIN 6.3 g/dL (6.4-8.2)
[2021-05-22] MEDS: LORazepam 2 MG/ML, 1ML IVPush PRN (05:17)
[2021-05-22] MEDS: CALCIUM CARBONATE 500 MG TAB.CHEW PO SCH ×4 (05:26→21:06)
[2021-05-22] MEDS: CHLORDIAZEPOXIDE 25 MG CAPSULE PO SCH ×4 (05:26→21:06)
[2021-05-22] MEDS: ALBUMIN HUMAN 25% 100 ML IV SCH ×3 (05:26→21:36)
[2021-05-22 05:51] LABS: BAND#(MANUAL) 3.05 x10^3/uL; BANDS%(MANUAL) 15 % (0-7); EOS% (MANUAL) 1 % (1-7); LYMPH#(MANUAL) 1.02 x10^3/uL (1-3.4); LYMPHS% (MANUAL) 5 % (22-44); METAMYELOCYTES# (MANUAL) 0.61 x10^3/uL (0-0); METAMYELOCYTES% (MANUAL) 3 % (0-1); MONOS#(MANUAL) 1.42 x10^3/uL (0.3-2.7); MONOS% (MANUAL) 7 % (2-9); MYELOCYTES# (MANUAL) 0.61 x10^3/uL (0-0); MYELOCYTES% (MANUAL) 3 % (0-0); SEGS% (MANUAL) 66 % (42-75)
[2021-05-22 05:52] LABS: ANISOCYTOSIS 1+; POLYCHROMASIA 1+; TOXIC GRAN 1+
[2021-05-22 05:53] LABS: <PLATELET ESTIMATE> ADEQUATE; <PLT MORPHOLOGY> NORMAL PLT MORPH
[2021-05-22] MEDS ORDERED: SODIUM CHLORIDE 0.9% 250 ML IV SCH (07:00)
[2021-05-22] MEDS ORDERED: SODIUM PHOSPHATE 20 MMOL in SODIUM CHLORIDE 0.9% 500 ML IV ONE (07:00)
[2021-05-22] MEDS: MULTIVITAMINS/MINERALS TABLET PO SCH (09:12)
[2021-05-22] MEDS: FAMOTIDINE 20 MG TABLET PO SCH ×2 (09:12→21:06)
[2021-05-22] MEDS: POTASSIUM CHLORIDE 20 MEQ PACKET PO SCH ×2 (09:12→16:10)
[2021-05-22] MEDS: THIAMINE 200 MG in DEXTROSE 5% 50 ML IVPB SCH (09:13)
[2021-05-22] MEDS: VANCOMYCIN 1,500 MG in SODIUM CHLORIDE 0.9% 250 ML IV SCH (10:41)
[2021-05-22] MEDS: CALCITRIOL 1 MCG/ML IVPush SCH (10:58)
--- NOTE | 2021-05-22 12:01 | NUR ---
TF per RD recommendations: Promote to start at 10mL/hr and advance Q12-24 hours as tolerated with end goal rate of 65 mL/hr. Addendum: 05/22/21 at [address] Amended: Links added.
[2021-05-22 12:56] VITALS: BP 169/93
--- NOTE | 2021-05-22 13:00 | NUR ---
TF Per JOHN PAUL recs (updated):recommendations: Vital AF 1.2 to start at 10mL/hr and advance Q12-24 hours as tolerated with end goal rate of 55 mL/hr Addendum: 05/22/21 at [address] Amended: Links added.
[2021-05-22] MEDS: ENOXAPARIN 40 MG/0.4 ML SQ SCH (13:05)
[2021-05-22 13:13] VITALS: BP 134/80
[2021-05-22 14:15] VITALS: BP 137/88
[2021-05-22 15:01] VITALS: BP 149/84
[2021-05-22] MEDS ORDERED: VANCOMYCIN 1,600 MG in SODIUM CHLORIDE 0.9% 250 ML IV SCH (20:30)
[2021-05-23] MEDS: OXYcodone IR 5MG TABLET PO PRN ×5 (00:20→23:38)
[2021-05-23] MEDS: MEROPENEM 1 GM in SODIUM CHLORIDE 0.9% 100 ML IV SCH ×3 (04:10→20:15)
[2021-05-23 04:25] LABS: MEAN CORPUSCULAR HEMOGLOBIN 31.8 pg (27.0-34.8); MEAN CORPUSCULAR HGB CONC 33.8 g/dL (32.4-35.8); MEAN PLATELET VOLUME 8.4 fL (7.4-10.4); PLATELET COUNT 242 x10^3/uL (130-400); RED BLOOD COUNT 2.63 x10^6/uL (3.82-5.3); RED CELL DISTRIBUTION WIDTH 15.3 % (9.6-15.2)
[2021-05-23 04:33] LABS: ALANINE AMINOTRANSFERASE 15 U/L (12-78); ALBUMIN 3.4 g/dL (3.4-5.0); ANION GAP 5 mmol/L (5-15); CALCIUM 8.6 mg/dL (8.5-10.1); CHLORIDE 96 mmol/L (98-107); CREATININE 0.28 mg/dL (0.55-1.02)
[2021-05-23 04:36] LABS: ALKALINE PHOSPHATASE 100 U/L (45-117); TOTAL PROTEIN 6.6 g/dL (6.4-8.2)
[2021-05-23 04:57] LABS: ANISOCYTOSIS 1+; BAND#(MANUAL) 5.04 x10^3/uL; BANDS%(MANUAL) 22 % (0-7); LYMPH#(MANUAL) 0.46 x10^3/uL (1-3.4); LYMPHS% (MANUAL) 2 % (22-44); METAMYELOCYTES# (MANUAL) 0.69 x10^3/uL (0-0); METAMYELOCYTES% (MANUAL) 3 % (0-1); MONOS#(MANUAL) 2.06 x10^3/uL (0.3-2.7); MONOS% (MANUAL) 9 % (2-9); MYELOCYTES# (MANUAL) 0.23 x10^3/uL (0-0); MYELOCYTES% (MANUAL) 1 % (0-0); PMNS WITH VACUOLES 1+; POLYCHROMASIA 1+; SEG#(MANUAL) 14.43 x10^3/uL (1.8-6.8); SEGS% (MANUAL) 63 % (42-75); TOXIC GRAN 1+
[2021-05-23 04:58] LABS: <PLATELET ESTIMATE> ADEQUATE; <PLT MORPHOLOGY> NORMAL PLT MORPH; TARGET CELLS 1+
[2021-05-23] MEDS: CALCIUM CARBONATE 500 MG TAB.CHEW PO SCH ×4 (05:40→20:15)
[2021-05-23] MEDS: ALBUMIN HUMAN 25% 100 ML IV SCH (05:40)
[2021-05-23] MEDS: CHLORDIAZEPOXIDE 25 MG CAPSULE PO SCH ×4 (05:40→20:15)
[2021-05-23] MEDS ORDERED: VANCOMYCIN 1,600 MG in SODIUM CHLORIDE 0.9% 250 ML IV SCH (08:30)
[2021-05-23] MEDS: MULTIVITAMINS/MINERALS TABLET PO SCH (09:03)
[2021-05-23] MEDS: FAMOTIDINE 20 MG TABLET PO SCH ×2 (09:03→20:15)
[2021-05-23] MEDS: THIAMINE 200 MG in DEXTROSE 5% 50 ML IVPB SCH (09:27)
[2021-05-23] MEDS: ENOXAPARIN 40 MG/0.4 ML SQ SCH (12:45)
[2021-05-23] MEDS: ACETAMINOPHEN 325 MG TABLET PO PRN ×2 (14:21→18:38)
[2021-05-23] MEDS: VANCOMYCIN 1,600 MG in SODIUM CHLORIDE 0.9% 250 ML IV SCH (17:15)
[2021-05-23] MEDS: POTASSIUM CHLORIDE 40 MEQ in D5%-LACTATED RINGERS 1,000 ML IV SCH (18:34)
[2021-05-24] MEDS: VANCOMYCIN 1,600 MG in SODIUM CHLORIDE 0.9% 250 ML IV SCH ×3 (01:50→16:34)
[2021-05-24] MEDS: morphine SULFATE 10 MG/ML, 1ML IVPush PRN (01:55)
[2021-05-24] MEDS: MEROPENEM 1 GM in SODIUM CHLORIDE 0.9% 100 ML IV SCH ×3 (04:07→20:28)
[2021-05-24] MEDS: OXYcodone IR 5MG TABLET PO PRN ×4 (04:11→20:29)
[2021-05-24 04:22] LABS: MEAN CORPUSCULAR HEMOGLOBIN 31.8 pg (27.0-34.8); MEAN CORPUSCULAR HGB CONC 33.1 g/dL (32.4-35.8); MEAN PLATELET VOLUME 8.2 fL (7.4-10.4); PLATELET COUNT 327 x10^3/uL (130-400); RED BLOOD COUNT 2.53 x10^6/uL (3.82-5.3); RED CELL DISTRIBUTION WIDTH 15.3 % (9.6-15.2)
[2021-05-24 04:30] LABS: ANION GAP 4 mmol/L (5-15); CALCIUM 8.6 mg/dL (8.5-10.1); CHLORIDE 96 mmol/L (98-107)
[2021-05-24 04:34] LABS: ALANINE AMINOTRANSFERASE 24 U/L (12-78); ALKALINE PHOSPHATASE 98 U/L (45-117); BILIRUBIN,TOTAL 0.8 mg/dL (0.2-1.0); CREATININE 0.33 mg/dL (0.55-1.02); TOTAL PROTEIN 6.4 g/dL (6.4-8.2)
[2021-05-24 05:46] LABS: BAND#(MANUAL) 0.25 x10^3/uL; BANDS%(MANUAL) 1 % (0-7); EOS% (MANUAL) 2 % (1-7); LYMPH#(MANUAL) 0.25 x10^3/uL (1-3.4); LYMPHS% (MANUAL) 1 % (22-44); METAMYELOCYTES# (MANUAL) 0.25 x10^3/uL (0-0); METAMYELOCYTES% (MANUAL) 1 % (0-1); MONOS#(MANUAL) 0.75 x10^3/uL (0.3-2.7); MONOS% (MANUAL) 3 % (2-9); SEG#(MANUAL) 22.91 x10^3/uL (1.8-6.8); SEGS% (MANUAL) 92 % (42-75)
[2021-05-24 05:47] LABS: <PLATELET ESTIMATE> ADEQUATE; <PLT MORPHOLOGY> NORMAL PLT MORPH; ANISOCYTOSIS 1+; POLYCHROMASIA 1+
[2021-05-24 05:48] LABS: TOXIC GRAN 1+
[2021-05-24] MEDS: CALCIUM CARBONATE 500 MG TAB.CHEW PO SCH ×4 (06:00→20:28)
[2021-05-24] MEDS: CHLORDIAZEPOXIDE 25 MG CAPSULE PO SCH ×4 (06:00→20:28)
[2021-05-24] MEDS: CALCITRIOL 1 MCG/ML IVPush SCH (08:29)
[2021-05-24] MEDS: FAMOTIDINE 20 MG TABLET PO SCH ×2 (08:29→20:28)
[2021-05-24] MEDS: MULTIVITAMINS/MINERALS TABLET PO SCH (08:29)
[2021-05-24] MEDS: THIAMINE 200 MG in DEXTROSE 5% 50 ML IVPB SCH (08:29)
[2021-05-24] MEDS: ENOXAPARIN 40 MG/0.4 ML SQ SCH (11:58)
[2021-05-24] MEDS: ONDANSETRON 2MG/ML, 2ML IVPush PRN (14:55)
[2021-05-24] MEDS: POTASSIUM CHLORIDE 40 MEQ in D5%-LACTATED RINGERS 1,000 ML IV SCH (15:57)
[2021-05-24] MEDS: ACETAMINOPHEN 325 MG TABLET PO PRN (20:28)
[2021-05-25] MEDS: VANCOMYCIN 1,600 MG in SODIUM CHLORIDE 0.9% 250 ML IV SCH ×3 (01:13→19:54)
[2021-05-25] MEDS: OXYcodone IR 5MG TABLET PO PRN ×4 (02:55→17:52)
[2021-05-25 04:22] LABS: MEAN CORPUSCULAR HEMOGLOBIN 31.8 pg (27.0-34.8); MEAN CORPUSCULAR HGB CONC 33.4 g/dL (32.4-35.8); MEAN PLATELET VOLUME 8.1 fL (7.4-10.4); PLATELET COUNT 379 x10^3/uL (130-400); RED BLOOD COUNT 2.61 x10^6/uL (3.82-5.3); RED CELL DISTRIBUTION WIDTH 14.9 % (9.6-15.2)
[2021-05-25] MEDS: MEROPENEM 1 GM in SODIUM CHLORIDE 0.9% 100 ML IV SCH ×3 (04:24→22:33)
[2021-05-25] MEDS: morphine SULFATE 10 MG/ML, 1ML IVPush PRN ×2 (04:30→20:27)
[2021-05-25 04:33] LABS: ANION GAP 6 mmol/L (5-15); CHLORIDE 95 mmol/L (98-107); CREATININE 0.34 mg/dL (0.55-1.02)
[2021-05-25 05:43] LABS: BASOS#(MANUAL) 0.22 x10^3/uL (0-0.1); BASOS% (MANUAL) 1 % (0-1); EOS#(MANUAL) 0.87 x10^3/uL (0.0-0.4); EOS% (MANUAL) 4 % (1-7); LYMPHS% (MANUAL) 6 % (22-44); METAMYELOCYTES# (MANUAL) 0.43 x10^3/uL (0-0); METAMYELOCYTES% (MANUAL) 2 % (0-1); MONOS#(MANUAL) 0.87 x10^3/uL (0.3-2.7); MONOS% (MANUAL) 4 % (2-9); SEG#(MANUAL) 18.01 x10^3/uL (1.8-6.8); SEGS% (MANUAL) 83 % (42-75)
[2021-05-25 05:44] LABS: <PLATELET ESTIMATE> ADEQUATE; <PLT MORPHOLOGY> NORMAL PLT MORPH; ANISOCYTOSIS 1+; POLYCHROMASIA 1+
[2021-05-25] MEDS: CALCIUM CARBONATE 500 MG TAB.CHEW PO SCH ×4 (06:12→19:54)
[2021-05-25] MEDS: CHLORDIAZEPOXIDE 25 MG CAPSULE PO SCH (06:12)
[2021-05-25] MEDS: MULTIVITAMINS/MINERALS TABLET PO SCH (08:35)
[2021-05-25] MEDS: FAMOTIDINE 20 MG TABLET PO SCH ×2 (08:35→19:54)
[2021-05-25] MEDS: THIAMINE 200 MG in DEXTROSE 5% 50 ML IVPB SCH (08:49)
[2021-05-25] MEDS: ENOXAPARIN 40 MG/0.4 ML SQ SCH (12:30)
[2021-05-25 14:50] VITALS: BP 112/74
[2021-05-25] MEDS: POTASSIUM CHLORIDE 40 MEQ in D5%-LACTATED RINGERS 1,000 ML IV SCH (15:34)
[2021-05-25 18:48] VITALS: BP 106/70
[2021-05-26] MEDS: OXYcodone IR 5MG TABLET PO PRN ×6 (00:48→22:51)
[2021-05-26 00:49] VITALS: BP 110/77
[2021-05-26] MEDS: morphine SULFATE 10 MG/ML, 1ML IVPush PRN ×3 (01:24→22:08)
[2021-05-26] MEDS: VANCOMYCIN 1,600 MG in SODIUM CHLORIDE 0.9% 250 ML IV SCH ×3 (04:12→20:00)
[2021-05-26] MEDS: CALCIUM CARBONATE 500 MG TAB.CHEW PO SCH ×4 (05:26→20:00)
[2021-05-26 05:52] LABS: MEAN CORPUSCULAR HEMOGLOBIN 31.4 pg (27.0-34.8); MEAN CORPUSCULAR HGB CONC 33.3 g/dL (32.4-35.8); MEAN PLATELET VOLUME 8.1 fL (7.4-10.4); PLATELET COUNT 419 x10^3/uL (130-400); RED BLOOD COUNT 2.35 x10^6/uL (3.82-5.3); RED CELL DISTRIBUTION WIDTH 14.4 % (9.6-15.2)
[2021-05-26 05:57] LABS: ANION GAP 6 mmol/L (5-15); CALCIUM 8.9 mg/dL (8.5-10.1); CHLORIDE 95 mmol/L (98-107)
[2021-05-26 05:59] LABS: CREATININE 0.42 mg/dL (0.55-1.02)
[2021-05-26] MEDS: MEROPENEM 1 GM in SODIUM CHLORIDE 0.9% 100 ML IV SCH ×3 (06:22→22:35)
[2021-05-26 06:41] LABS: ANISOCYTOSIS 1+; BAND#(MANUAL) 0.36 x10^3/uL; BANDS%(MANUAL) 2 % (0-7); EOS#(MANUAL) 0.18 x10^3/uL (0.0-0.4); EOS% (MANUAL) 1 % (1-7); LYMPH#(MANUAL) 1.26 x10^3/uL (1-3.4); LYMPHS% (MANUAL) 7 % (22-44); METAMYELOCYTES# (MANUAL) 0.54 x10^3/uL (0-0); METAMYELOCYTES% (MANUAL) 3 % (0-1); MONOS#(MANUAL) 1.62 x10^3/uL (0.3-2.7); MONOS% (MANUAL) 9 % (2-9); POLYCHROMASIA 1+; SEG#(MANUAL) 14.04 x10^3/uL (1.8-6.8); SEGS% (MANUAL) 78 % (42-75)
[2021-05-26 06:42] LABS: <PLATELET ESTIMATE> INCREASED; <PLT MORPHOLOGY> NORMAL PLT MORPH
[2021-05-26 07:40] VITALS: BP 115/70
[2021-05-26] MEDS: FAMOTIDINE 20 MG TABLET PO SCH (08:21)
[2021-05-26] MEDS: MULTIVITAMINS/MINERALS TABLET PO SCH (08:21)
[2021-05-26] MEDS: THIAMINE 200 MG in DEXTROSE 5% 50 ML IVPB SCH (09:35)
[2021-05-26] MEDS: CALCITRIOL 1 MCG/ML IVPush SCH (09:35)
[2021-05-26] MEDS: PANTOPRAZOLE 40 MG IV IVPush SCH (12:33)
[2021-05-26] MEDS: ENOXAPARIN 40 MG/0.4 ML SQ SCH (12:33)
[2021-05-26 14:03] VITALS: BP 113/68
[2021-05-26 19:19] VITALS: BP 111/61
[2021-05-27 00:56] VITALS: BP 112/69
[2021-05-27] MEDS: PANTOPRAZOLE 40 MG IV IVPush SCH ×3 (01:06→23:48)
[2021-05-27] MEDS: OXYcodone IR 5MG TABLET PO PRN ×4 (03:47→18:54)
[2021-05-27] MEDS: VANCOMYCIN 1,600 MG in SODIUM CHLORIDE 0.9% 250 ML IV SCH ×2 (03:49→13:10)
[2021-05-27] MEDS: morphine SULFATE 10 MG/ML, 1ML IVPush PRN ×4 (05:48→22:03)
[2021-05-27] MEDS: CALCIUM CARBONATE 500 MG TAB.CHEW PO SCH ×4 (05:49→22:02)
[2021-05-27 05:58] LABS: MEAN CORPUSCULAR HEMOGLOBIN 31.3 pg (27.0-34.8); MEAN CORPUSCULAR HGB CONC 33.3 g/dL (32.4-35.8); MEAN PLATELET VOLUME 8.3 fL (7.4-10.4); PLATELET COUNT 415 x10^3/uL (130-400); RED BLOOD COUNT 2.33 x10^6/uL (3.82-5.3); RED CELL DISTRIBUTION WIDTH 14.2 % (9.6-15.2)
[2021-05-27] MEDS: POTASSIUM CHLORIDE 40 MEQ in D5%-LACTATED RINGERS 1,000 ML IV SCH (06:24)
[2021-05-27] MEDS: MEROPENEM 1 GM in SODIUM CHLORIDE 0.9% 100 ML IV SCH ×3 (06:24→23:31)
[2021-05-27 06:32] LABS: BAND#(MANUAL) 0.52 x10^3/uL; BANDS%(MANUAL) 4 % (0-7); EOS#(MANUAL) 0.13 x10^3/uL (0.0-0.4); EOS% (MANUAL) 1 % (1-7); LYMPH#(MANUAL) 0.52 x10^3/uL (1-3.4); LYMPHS% (MANUAL) 4 % (22-44); METAMYELOCYTES# (MANUAL) 0.65 x10^3/uL (0-0); METAMYELOCYTES% (MANUAL) 5 % (0-1); MONOS#(MANUAL) 1.42 x10^3/uL (0.3-2.7); MONOS% (MANUAL) 11 % (2-9); SEG#(MANUAL) 9.68 x10^3/uL (1.8-6.8); SEGS% (MANUAL) 75 % (42-75)
[2021-05-27 06:34] LABS: <PLATELET ESTIMATE> INCREASED; <PLT MORPHOLOGY> NORMAL PLT MORPH; ANISOCYTOSIS 1+; POLYCHROMASIA 1+
[2021-05-27 07:07] VITALS: BP 110/70
[2021-05-27] MEDS: MULTIVITAMINS/MINERALS TABLET PO SCH (08:32)
[2021-05-27] MEDS: THIAMINE 200 MG in DEXTROSE 5% 50 ML IVPB SCH (08:32)
[2021-05-27] MEDS: ENOXAPARIN 40 MG/0.4 ML SQ SCH (12:55)
[2021-05-27 14:17] VITALS: BP 104/61
[2021-05-27 19:16] VITALS: BP 109/71
[2021-05-28] VITALS (8 sets, daily range): BP systolic 100–117; BP diastolic 60–77
[2021-05-28] MEDS: OXYcodone IR 5MG TABLET PO PRN ×5 (01:16→22:37)
[2021-05-28] MEDS: morphine SULFATE 10 MG/ML, 1ML IVPush PRN ×4 (03:01→20:53)
[2021-05-28 04:53] LABS: MEAN CORPUSCULAR HEMOGLOBIN 31.6 pg (27.0-34.8); MEAN CORPUSCULAR HGB CONC 33.4 g/dL (32.4-35.8); MEAN PLATELET VOLUME 8.3 fL (7.4-10.4); PLATELET COUNT 445 x10^3/uL (130-400); RED BLOOD COUNT 2.14 x10^6/uL (3.82-5.3); RED CELL DISTRIBUTION WIDTH 14.6 % (9.6-15.2)
[2021-05-28 05:07] LABS: ALANINE AMINOTRANSFERASE 21 U/L (12-78); ANION GAP 2 mmol/L (5-15); CALCIUM 8.8 mg/dL (8.5-10.1); CHLORIDE 104 mmol/L (98-107); CREATININE 0.44 mg/dL (0.55-1.02)
[2021-05-28 05:09] LABS: ALKALINE PHOSPHATASE 112 U/L (45-117); BILIRUBIN,TOTAL 0.5 mg/dL (0.2-1.0); TOTAL PROTEIN 6.5 g/dL (6.4-8.2)
[2021-05-28] MEDS: VANCOMYCIN 1,600 MG in SODIUM CHLORIDE 0.9% 250 ML IV SCH ×2 (05:49→17:20)
[2021-05-28 05:57] LABS: BAND#(MANUAL) 0.59 x10^3/uL; BANDS%(MANUAL) 5 % (0-7); METAMYELOCYTES# (MANUAL) 0.12 x10^3/uL (0-0); METAMYELOCYTES% (MANUAL) 1 % (0-1); MONOS#(MANUAL) 1.52 x10^3/uL (0.3-2.7); MONOS% (MANUAL) 13 % (2-9)
[2021-05-28 05:58] LABS: EOS#(MANUAL) 0.47 x10^3/uL (0.0-0.4); EOS% (MANUAL) 4 % (1-7); LYMPH#(MANUAL) 1.17 x10^3/uL (1-3.4); LYMPHS% (MANUAL) 10 % (22-44); POLYCHROMASIA 1+; SEG#(MANUAL) 7.84 x10^3/uL (1.8-6.8); SEGS% (MANUAL) 67 % (42-75)
[2021-05-28 05:59] LABS: <PLATELET ESTIMATE> INCREASED; <PLT MORPHOLOGY> NORMAL PLT MORPH; ANISOCYTOSIS 1+
[2021-05-28] MEDS: CALCIUM CARBONATE 500 MG TAB.CHEW PO SCH ×4 (06:05→20:53)
[2021-05-28] MEDS ORDERED: SODIUM CHLORIDE 0.9% 250 ML IV ONE (07:00)
[2021-05-28] MEDS: MEROPENEM 1 GM in SODIUM CHLORIDE 0.9% 100 ML IV SCH ×3 (08:58→23:59)
[2021-05-28] MEDS: MULTIVITAMINS/MINERALS TABLET PO SCH (08:59)
[2021-05-28] MEDS: THIAMINE 200 MG in DEXTROSE 5% 50 ML IVPB SCH (08:59)
[2021-05-28] MEDS: PANTOPRAZOLE 40 MG IV IVPush SCH ×2 (10:52→23:59)
[2021-05-28] MEDS: ENOXAPARIN 40 MG/0.4 ML SQ SCH (13:10)
[2021-05-28] MEDS: DOCUSATE 100 MG CAPSULE PO PRN (17:20)
[2021-05-29 01:31] VITALS: BP 112/66
[2021-05-29] MEDS: OXYcodone IR 5MG TABLET PO PRN ×5 (03:56→21:37)
[2021-05-29] MEDS: CALCIUM CARBONATE 500 MG TAB.CHEW PO SCH ×4 (05:16→21:14)
[2021-05-29] MEDS: morphine SULFATE 10 MG/ML, 1ML IVPush PRN ×2 (05:16)
[2021-05-29 05:37] LABS: MEAN CORPUSCULAR HEMOGLOBIN 32.7 pg (27.0-34.8); MEAN CORPUSCULAR HGB CONC 34.9 g/dL (32.4-35.8); MEAN PLATELET VOLUME 8.4 fL (7.4-10.4); PLATELET COUNT 455 x10^3/uL (130-400); RED BLOOD COUNT 2.55 x10^6/uL (3.82-5.3); RED CELL DISTRIBUTION WIDTH 14.4 % (9.6-15.2)
[2021-05-29 05:42] LABS: ANION GAP 7 mmol/L (5-15); CALCIUM 8.9 mg/dL (8.5-10.1); CHLORIDE 98 mmol/L (98-107)
[2021-05-29 06:02] LABS: ANISOCYTOSIS 1+; BAND#(MANUAL) 0.11 x10^3/uL; BANDS%(MANUAL) 1 % (0-7); EOS#(MANUAL) 0.21 x10^3/uL (0.0-0.4); EOS% (MANUAL) 2 % (1-7); LYMPH#(MANUAL) 0.74 x10^3/uL (1-3.4); LYMPHS% (MANUAL) 7 % (22-44); METAMYELOCYTES# (MANUAL) 0.11 x10^3/uL (0-0); METAMYELOCYTES% (MANUAL) 1 % (0-1); MONOS#(MANUAL) 0.74 x10^3/uL (0.3-2.7); MONOS% (MANUAL) 7 % (2-9); SEG#(MANUAL) 8.69 x10^3/uL (1.8-6.8); SEGS% (MANUAL) 82 % (42-75)
[2021-05-29 06:03] LABS: <PLATELET ESTIMATE> INCREASED; <PLT MORPHOLOGY> NORMAL PLT MORPH; POLYCHROMASIA 1+
[2021-05-29] MEDS: VANCOMYCIN 1,600 MG in SODIUM CHLORIDE 0.9% 250 ML IV SCH ×2 (06:11→17:34)
[2021-05-29 07:45] VITALS: BP 118/78
[2021-05-29] MEDS: MULTIVITAMINS/MINERALS TABLET PO SCH (08:36)
[2021-05-29] MEDS: DOCUSATE 100 MG CAPSULE PO PRN (08:37)
[2021-05-29] MEDS: THIAMINE 200 MG in DEXTROSE 5% 50 ML IVPB SCH (08:54)
[2021-05-29] MEDS: MEROPENEM 1 GM in SODIUM CHLORIDE 0.9% 100 ML IV SCH ×3 (08:54→23:49)
[2021-05-29] MEDS: CALCITRIOL 1 MCG/ML IVPush SCH (08:54)
[2021-05-29] MEDS: ACETAMINOPHEN 500 MG TABLET PO SCH ×3 (08:54→21:14)
[2021-05-29] MEDS ORDERED: MORPHINE SULFATE 4 MG/ML, 1ML IVPush PRN (09:00)
[2021-05-29] MEDS: PANTOPRAZOLE 40MG TABLET PO SCH ×2 (09:00→21:14)
[2021-05-29] MEDS: PANTOPRAZOLE 40 MG IV IVPush SCH (13:02)
[2021-05-29] MEDS: ENOXAPARIN 40 MG/0.4 ML SQ SCH (13:02)
[2021-05-29 13:08] VITALS: BP 115/66
[2021-05-29 18:44] VITALS: BP 162/94
[2021-05-30 02:00] VITALS: BP 154/86
[2021-05-30] MEDS: OXYcodone IR 5MG TABLET PO PRN ×4 (02:29→12:15)
[2021-05-30] MEDS: CALCIUM CARBONATE 500 MG TAB.CHEW PO SCH ×3 (05:31→14:43)
[2021-05-30 05:57] LABS: MEAN CORPUSCULAR HEMOGLOBIN 31.6 pg (27.0-34.8); MEAN CORPUSCULAR HGB CONC 33.5 g/dL (32.4-35.8); MEAN PLATELET VOLUME 8.3 fL (7.4-10.4); PLATELET COUNT 523 x10^3/uL (130-400); RED CELL DISTRIBUTION WIDTH 13.9 % (9.6-15.2)
[2021-05-30 06:42] LABS: <PLATELET ESTIMATE> INCREASED; <PLT MORPHOLOGY> NORMAL PLT MORPH; ANISOCYTOSIS 1+; BAND#(MANUAL) 0.16 x10^3/uL; BANDS%(MANUAL) 2 % (0-7); EOS#(MANUAL) 0.32 x10^3/uL (0.0-0.4); EOS% (MANUAL) 4 % (1-7); LYMPH#(MANUAL) 0.97 x10^3/uL (1-3.4); LYMPHS% (MANUAL) 12 % (22-44); METAMYELOCYTES# (MANUAL) 0.16 x10^3/uL (0-0); METAMYELOCYTES% (MANUAL) 2 % (0-1); MONOS#(MANUAL) 0.41 x10^3/uL (0.3-2.7); MONOS% (MANUAL) 5 % (2-9); POLYCHROMASIA 1+; SEG#(MANUAL) 6.08 x10^3/uL (1.8-6.8); SEGS% (MANUAL) 75 % (42-75)
[2021-05-30] MEDS: VANCOMYCIN 1,400 MG in SODIUM CHLORIDE 0.9% 250 ML IV SCH ×2 (07:00→14:42)
[2021-05-30 07:16] VITALS: BP 119/81
[2021-05-30] MEDS: MULTIVITAMINS/MINERALS TABLET PO SCH (07:27)
[2021-05-30] MEDS: PANTOPRAZOLE 40MG TABLET PO SCH (07:27)
[2021-05-30] MEDS: MEROPENEM 1 GM in SODIUM CHLORIDE 0.9% 100 ML IV SCH ×2 (07:27→14:43)
[2021-05-30] MEDS: ACETAMINOPHEN 500 MG TABLET PO SCH (07:28)
[2021-05-30] MEDS ORDERED: DISU250T15 PO (08:19)
[2021-05-30] MEDS ORDERED: OMEP20CA20 PO (08:19)
[2021-05-30] MEDS ORDERED: ACET-1600 PO (08:19)
[2021-05-30] MEDS ORDERED: OXYC5TAB98 PO (08:19)
[2021-05-30] MEDS ORDERED: SENN-220 PO (08:19)
[2021-05-30] MEDS ORDERED: THIAMINE 100MG TABLET PO SCH (09:00)
[2021-05-30] MEDS: ENOXAPARIN 40 MG/0.4 ML SQ SCH (12:36)
[2021-05-30 14:14] VITALS: BP 110/70
[2021-05-30 14:27] VITALS: BP 123/79
== END 2021-05-30 14:56 | disposition home or self-care (01) | DRG 282 ==
LOC: ED 21:40 → EDIP 05-16 01:39 → 3N 05-16 03:28 → 4WST 05-16 07:50 → CCU 05-19 18:03 → 4EST 05-25 11:54 → DCLOUNGE 05-30 09:28 → 4EST 05-30 09:29
PROVIDERS: ADMIT Internal Medicine; ATTEND Family Medicine
PROC: 30233N1 Transfusion of Nonautologous Red Blood Cells into Peripheral Vein, Percutaneous Approach (ICD-10-PCS; principal; 2021-05-22)
PROC: 02HV33Z Insertion of Infusion Device into Superior Vena Cava, Percutaneous Approach (ICD-10-PCS; 2021-05-28)
PROC: B518ZZA Fluoroscopy of Superior Vena Cava, Guidance (ICD-10-PCS; 2021-05-28)
PROC: B548ZZA Ultrasonography of Superior Vena Cava, Guidance (ICD-10-PCS; 2021-05-28)
DX: K85.21 Alcohol induced acute pancreatitis with uninfected necrosis (principal); J96.01 Acute respiratory failure with hypoxia; N17.0 Acute kidney failure with tubular necrosis; G93.41 Metabolic encephalopathy; E43 Unspecified severe protein-calorie malnutrition; F10.231 Alcohol dependence with withdrawal delirium; J90 Pleural effusion, not elsewhere classified; I95.9 Hypotension, unspecified; D27.9 Benign neoplasm of unspecified ovary; E87.2 Acidosis; K72.90 Hepatic failure, unspecified without coma; D64.9 Anemia, unspecified; D72.825 Bandemia; E83.39 Other disorders of phosphorus metabolism; E83.42 Hypomagnesemia; E83.51 Hypocalcemia; I82.611 Acute embolism and thrombosis of superficial veins of right upper extremity; E87.1 Hypo-osmolality and hyponatremia; E87.6 Hypokalemia; F12.90 Cannabis use, unspecified, uncomplicated; I80.8 Phlebitis and thrombophlebitis of other sites; K76.0 Fatty (change of) liver, not elsewhere classified; R18.8 Other ascites; R65.10 Systemic inflammatory response syndrome (SIRS) of non-infectious origin without acute organ dysfunction; K86.1 Other chronic pancreatitis; R73.9 Hyperglycemia, unspecified; Z82.49 Family history of ischemic heart disease and other diseases of the circulatory system; Z68.29 Body mass index [BMI] 29.0-29.9, adult
CPT/HCPCS: 36415; 36600; 74018; 96361; 96374; 96375; 99285; J7121; 36573; 71045; 71250; 74176; 74177; 80048; 80053; 80069; 80202; 80320; 81001; 82140; 82306; 82330; 82550; 82570; 82607; 82803; 82962; 83010; 83036; 83605; 83690; 83735; 83970; 84100; 84132; 84300; 84540; 84703; 85014; 85018; 85025; 85379; 86850; 86900; 86923; 87040; 87081; 87086; G0378; J0610; J0636; J0696; J1170; J1650; J2185; J2405; J2543; J3370; J3411; J3475; J3480; J7070; P9047; Q9967; C1751; C9113; G0480; J2060; J2270; J7030; J7040; J7050; J7120; P9016